=== PATIENT | male | born 1995 | race African-American/Black ===

== ENCOUNTER 2019-12-11 00:08 | Emergency (ER) | payer OTHER ==
[~2019-12-11] VITALS: Ht 180.3 cm; Wt 95.3 kg
[2019-12-11 02:46] VITALS: BP 146/77; TEMP 98.7
== END 2019-12-11 02:46 | disposition home or self-care (01) ==
LOC: ED 00:08
DX: B34.9 Viral infection, unspecified (principal); J98.01 Acute bronchospasm; F17.210 Nicotine dependence, cigarettes, uncomplicated
CPT/HCPCS: 87502; 87635; 87651; 94664; 99283